=== PATIENT | male | born 1960 | race Caucasian/White ===

== ENCOUNTER 2021-01-12 18:24 | Observation (INO) | payer MEDICAID ==
[2021-01-12] VITALS (10 sets, daily range): BP systolic 87–155; BP diastolic 30–77; PULSE 91; TEMP 97.8; O2SAT 94–99
[~2021-01-12] VITALS: Ht 160 cm; Wt 123.5 kg
[2021-01-12 18:55] LABS: BASO # 0.1 (0.0-0.2); EOS # 0.1 (0.0-0.7); GRAN % 63.6 % (42.2-75.2); HEMATOCRIT 46.5 % (42.0-52.0); HEMOGLOBIN 15.1 g/dl (13.5-18.0); LYMPH # 3.1 (1.2-3.4); LYMPH % 24.4 % (20.0-51.0); MEAN CELL VOLUME 86 fl (80.0-100.0); MEAN CORPUSCULAR HEMOGLOBIN 28 pg (27.0-31.0); MEAN CORPUSCULAR HGB CONC 33 g/dl (33.0-37.0); MEAN PLATELET VOLUME 9.6 fl (7.4-10.4); MONO # 1.1 (0.1-0.6); MONO % 8.8 % (1.7-9.3); PLATELET COUNT 354 K/mm3 (130-400); RED BLOOD COUNT 5.41 M/mm3 (4.20-5.60); REDCELL DISTRIBUTION WIDTH-CV 14.6 % (11.5-14.5)
[2021-01-12 18:57] LABS: ALANINE AMINOTRANSFERASE 28 U/L (4-49); ALBUMIN 4.4 gm/dL (3.5-5.0); ALKALINE PHOSPHATASE 98 U/L (50-136); ANION GAP 13 mmol/L (7-16); AST,SGOT 25 U/L (15-37); BILIRUBIN,TOTAL 0.5 mg/dL (0.0-1.0); BLOOD UREA NITROGEN 35 mg/dL (9-20); CALCIUM 9.5 mg/dL (8.4-10.2); CARBON DIOXIDE 27 mmol/L (22-30); CHLORIDE 94 mmol/L (98-107); CREATININE, serum 1.64 (0.66-1.25); GLUCOSE 213 mg/dL (74-106); POTASSIUM 4.6 mmol/L (3.4-5.0); SODIUM 134 mmol/L (137-145); TOTAL PROTEIN 7.9 gm/dL (6.4-8.2)
[2021-01-12 19:09] LABS: TROPONIN-I < 0.012 ng/mL (0.000-0.035)
[2021-01-12] MEDS ORDERED: ALDACTONE 100M100 MG PO (20:37)
[2021-01-12] MEDS ORDERED: ISORDIL TITRADO30 MG PO (20:38)
[2021-01-12] MEDS ORDERED: LASIX 40MG TABL40 MG PO (20:39)
[2021-01-12] MEDS ORDERED: LIPITOR 80MG80 MG PO (20:40)
[2021-01-12] MEDS ORDERED: PLAVIX 75MG TAB75 MG PO (20:40)
[2021-01-12] MEDS ORDERED: ENTRESTO 97 MG1 EACH PO (20:41)
[2021-01-12] MEDS ORDERED: COREG 6.256.25 MG/TA PO (20:41)
[2021-01-12] MEDS ORDERED: LANTUS SOLOS100 U/ML SQ (20:42)
[2021-01-12] MEDS ORDERED: ASPIRIN 81M81 MG/TA2 PO (20:42)
[2021-01-12] MEDS ORDERED: HUMALOGKP50/50 SQ (20:43)
[2021-01-12] MEDS ORDERED: DIGITEK0.125 MG PO (20:45)
[2021-01-12] MEDS ORDERED: FARXIGA10 PO (20:46)
--- NOTE | 2021-01-12 21:20 | NUR ---
Received report from EVON Cross.
--- NOTE | 2021-01-12 21:42 | NUR ---
Patient arrives to ICU room 4 via ED stretcher. Patient able to self-ambulate to ICU bed with standby assistance. Patient is alert and oriented; reports constant aching chest pain rated 8/10. All vitals within normal limits. He arrives receiving nitroglycerine to a 20G peripheral IV in the left forearm at 30 mcg/min or 9mL/hr. Patient also has a saline locked 22G peripheral IV in the right forearm. No other fluids infusing upon arrival. Fauzia hospitalist, aware of patient's arrival to unit.
--- NOTE | 2021-01-12 22:00 | NUR ---
Patient's belongings include street clothes, glasses, and a wallet with $14 leonardo. Patient denies having a cell phone, hearing aids, dentures, or jewelry on person. Denies using assistive devices to ambulate. Refuses use of hospital safe when offered. All patient belongings at bedside or within patient's closet.
[2021-01-12 22:05] LABS: INR 0.9 (0.8-3.0); PROTHROMBIN TIME 10.2 SECONDS (9.7-12.8)
[2021-01-13] VITALS (70 sets, daily range): BP systolic 108–123; BP diastolic 65–72; PULSE 81–89; TEMP 97.4–99; O2SAT 93–99
[2021-01-13 05:40] LABS: BASO # 0.1 (0.0-0.2); BASO % 0.8 % (0.0-2.0); EOS # 0.2 (0.0-0.7); EOS % 1.9 % (0-4.0); GRAN # 5.8 (1.4-6.5); GRAN % 53.8 % (42.2-75.2); HEMATOCRIT 41.1 % (42.0-52.0); HEMOGLOBIN 13.4 g/dl (13.5-18.0); LYMPH # 3.7 (1.2-3.4); LYMPH % 33.9 % (20.0-51.0); MEAN CELL VOLUME 87 fl (80.0-100.0); MEAN CORPUSCULAR HEMOGLOBIN 28 pg (27.0-31.0); MEAN CORPUSCULAR HGB CONC 33 g/dl (33.0-37.0); MEAN PLATELET VOLUME 9.9 fl (7.4-10.4); MONO # 0.9 (0.1-0.6); MONO % 8.3 % (1.7-9.3); PLATELET COUNT 313 K/mm3 (130-400); RED BLOOD COUNT 4.73 M/mm3 (4.20-5.60); REDCELL DISTRIBUTION WIDTH-CV 14.5 % (11.5-14.5)
[2021-01-13 05:55] LABS: CALCIUM 8.4 mg/dL (8.4-10.2); CREATININE, serum 1.54 (0.66-1.25); POTASSIUM 4.2 mmol/L (3.4-5.0)
[2021-01-13 06:06] LABS: TROPONIN-I 0.024 ng/mL (0.000-0.035)
[2021-01-13 06:25] LABS: CHOLESTEROL RISK RATIO 6.9
--- NOTE | 2021-01-13 07:00 | NUR ---
PT RESTING IN BED. VSS. PT HAS NITRO DRIP AT 20MCG/MIN. WILL CONTINUE TO MONTITOR.
--- NOTE | 2021-01-13 11:40 | NUR ---
PT REQUESTING TO LEAVE AMA. PREVIOUSLY DISCUSSED WITH PT THE NEED TO STAY AND EVALUATE CHEST PAIN. PT STILL REQUESTING TO LEAVE. IV AND TELE DC'D. DISCUSSESD WITH PT THE RISKS OF LEAVING AMA. INSTRUCTED PT TO FOLLOW UP WITH HIS [employer] SUPERVISOR AND IF CHEST PAIN WORSENS TO VISIT AN ER. PT WALKED TO ER ENTERENCE WITH . PT HAS ALL BELONGINGS AND WALLET. NOTIFIED.
== END 2021-01-13 11:25 | disposition left against medical advice (07) ==
LOC: COL.ER 18:24 → ICU 20:48
PROVIDERS: Nurse Practitioner; Student in an Organized Health Care Education/Training Program; ADMIT Family Medicine
DX: R07.9 Chest pain, unspecified (principal); N18.6 End stage renal disease; N17.9 Acute kidney failure, unspecified; D72.829 Elevated white blood cell count, unspecified; I25.10 Atherosclerotic heart disease of native coronary artery without angina pectoris; E78.5 Hyperlipidemia, unspecified; E66.9 Obesity, unspecified; I12.9 Hypertensive chronic kidney disease with stage 1 through stage 4 chronic kidney disease, or unspecified chronic kidney disease; E11.9 Type 2 diabetes mellitus without complications; E11.22 Type 2 diabetes mellitus with diabetic chronic kidney disease; F17.290 Nicotine dependence, other tobacco product, uncomplicated; N18.9 Chronic kidney disease, unspecified; Z95.5 Presence of coronary angioplasty implant and graft; Z79.4 Long term (current) use of insulin; Z79.02 Long term (current) use of antithrombotics/antiplatelets; Z79.899 Other long term (current) drug therapy; Z79.82 Long term (current) use of aspirin; Z95.810 Presence of automatic (implantable) cardiac defibrillator; Z90.49 Acquired absence of other specified parts of digestive tract; Z80.9 Family history of malignant neoplasm, unspecified
CPT/HCPCS: 99223-AI; 99233-AI; G0378; J1170; J1815; J2270; J7030